=== PATIENT | female | born 1965 | race Caucasian/White ===

== ENCOUNTER → 2016-08-31 | Outpatient (CLI) | payer OTHER ==
[~2016-08-31] MED LIST: LEVO250T7 PO
[2016-08-31 09:56] LABS: BASO % 0 % (0-3); EOS % 4 % (0-3); HEMATOCRIT 39.6 % (36.0-47.0); HEMOGLOBIN 13.6 g/dL (12.0-15.5); LYMPH % 37 % (24-48); MEAN CORPUSCULAR HEMOGLOBIN 30 pg (25-35); MEAN CORPUSCULAR HGB CONC 34 g/dL (31-37); MEAN CORPUSCULAR VOLUME 87 fL (79-100); MONO % 7 % (0-9); NEUT % 52 % (31-73); PLATELET COUNT 318 x10^3/uL (140-400); RED BLOOD COUNT 4.56 x10^6/uL (3.50-5.40); RED CELL DISTRIBUTION WIDTH 13.1 % (11.5-14.5); WHITE BLOOD COUNT 5.4 x10^3/uL (4.0-11.0)
[2016-08-31 10:20] LABS: CHOLESTEROL/HDL RATIO 2.7
[2016-08-31 10:28] LABS: FREE T4 1.18 ng/dL (0.76-1.46)
== END | disposition home or self-care (01) ==
LOC: LAB 09:35
PROVIDERS: ATTEND Internal Medicine
DX: Z01.419 Encounter for gynecological examination (general) (routine) without abnormal findings (principal); E03.9 Hypothyroidism, unspecified
CPT/HCPCS: 36415; 80061; 84439; 84443; 85027; 86803

== ENCOUNTER → 2017-11-03 | Outpatient (CLI) | payer OTHER ==
[2017-11-03 09:05] LABS: ADD MAN DIFF? NO
[2017-11-03 09:14] LABS: BASO % 0 % (0-3); EOS # 0.2 x10^3/uL (0.0-0.7); EOS % 4 % (0-3); HEMATOCRIT 38.4 % (36.0-47.0); LYMPH # 1.9 x10^3/uL (1.0-4.8); LYMPH % 34 % (24-48); MEAN CORPUSCULAR HEMOGLOBIN 30 pg (25-35); MEAN CORPUSCULAR HGB CONC 34 g/dL (31-37); MEAN CORPUSCULAR VOLUME 89 fL (79-100); MONO # 0.4 x10^3/uL (0.0-1.1); MONO % 8 % (0-9); NEUT # 3.1 x10^3uL (1.8-7.7); NEUT % 55 % (31-73); PLATELET COUNT 292 x10^3/uL (140-400); RED CELL DISTRIBUTION WIDTH 13.5 % (11.5-14.5); WHITE BLOOD COUNT 5.7 x10^3/uL (4.0-11.0)
[2017-11-03 09:24] LABS: ALBUMIN 3.5 g/dL (3.4-5.0); ALBUMIN/GLOBULIN RATIO 0.8 (1.0-1.7); ALK PHOS 71 U/L (46-116); ALT (SGPT) 58 U/L (14-59); ANION GAP 5 (6-14); AST (SGOT) 37 U/L (15-37); BLOOD UREA NITROGEN 16 mg/dL (7-20); BUN/CREATININE RATIO 20 (6-20); CALCIUM 9.2 mg/dL (8.5-10.1); CARBON DIOXIDE 29 mmol/L (21-32); CHLORIDE 106 mmol/L (98-107); CHOLESTEROL 223 mg/dL (0-200); CREATININE 0.8 mg/dL (0.6-1.0); GFR 75.3; GLUCOSE 97 mg/dL (70-99); HDLC 73 mg/dL (40-60); LDLC 141 mg/dL (0-100); NON-HDL CHOLESTEROL 150 mg/dL (0-129); POTASSIUM 4.2 mmol/L (3.5-5.1); SODIUM 140 mmol/L (136-145); TOTAL BILIRUBIN 0.2 mg/dL (0.2-1.0); TOTAL PROTEIN 7.8 g/dL (6.4-8.2); TRIGLYCERIDES 46 mg/dL (0-150); VLDLC 9 mg/dL (0-40)
[2017-11-03 09:28] LABS: CHOLESTEROL/HDL RATIO 3.1
[2017-11-03 09:36] LABS: THYROID STIM HORMONE (TSH) 2.048 uIU/mL (0.358-3.74)
== END | disposition home or self-care (01) ==
LOC: LAB 08:53
DX: Z00.00 Encounter for general adult medical examination without abnormal findings (principal); E03.9 Hypothyroidism, unspecified
CPT/HCPCS: 36415; 80053; 80061; 84443; 85025

== ENCOUNTER 2018-08-06 23:41 | Emergency (ER) | payer OTHER ==
[~2018-08-06] VITALS: Ht 170.2 cm; Wt 95.3 kg
[2018-08-06 23:58] VITALS: BP 149/86
[2018-08-07] MEDS ORDERED: ONDA4TAB12 PO (00:29)
[2018-08-07] MEDS ORDERED: CYCL10TA2 PO (00:29)
[2018-08-07] MEDS ORDERED: HYDR-3164 PO (00:29)
[2018-08-07] MEDS ORDERED: DEXAMETHASONE 4 MG TABLET PO ONE (00:30)
[2018-08-07] MEDS ORDERED: HYDROcodone/APAP 5/325MG 1 TAB TABLET PO ONE (00:30)
--- NOTE | 2018-08-07 00:30 | PHYS DOC ---
Past Medical History Additional Information: non smoker Adult General Chief Complaint Chief Complaint: HIP PAIN HPI HPI Patient is a 53-year-old female who presents with right hip pain that radiates down her right leg for one day. The patient states she has been putting together deck furniture on her deck. Has never had this symptom before. Associated symptoms include pain shooting down her leg. It is 10 out of 10 in severity. She took ibuprofen p.m. at 945 and then woke up during her sleep with the pain. Review of Systems Review of Systems Constitutional: Denies fever or chills [] Eyes: Denies change in visual acuity, redness, or eye pain [] HENT: Denies nasal congestion or sore throat [] Respiratory: Denies cough or shortness of breath [] Cardiovascular: No additional information not addressed in HPI [] GI: Denies abdominal pain, nausea, vomiting, bloody stools or diarrhea [] : Denies dysuria or hematuria [] Musculoskeletal: Reports lumbar back pain and hip pain on the right side. Integument: Denies rash or skin lesions [] Neurologic: Denies headache, focal weakness or sensory changes [] Endocrine: Denies polyuria or polydipsia [] Complete systems were reviewed and found to be within normal limits, except as documented in this note. Current Medications Current Medications Current Medications Medications (Trade) Dose Ordered Sig/Porter Start Time Stop Time Status Last Admin Dose Admin Acetaminophen/ Hydrocodone Bitart (Lortab 5/325) 1 tab 1X ONCE 08/07/18 00:30 08/07/18 00:31 DC 08/07/18 00:24 1 TAB Dexamethasone (Decadron) 10 mg 1X ONCE 08/07/18 00:30 08/07/18 00:31 DC 08/07/18 00:23 10 MG Allergies Allergies Allergies Coded Allergies Type Severity Reaction Last Updated Verified Penicillins Allergy Intermediate Hives 09/20/13 Yes Physical Exam Physical Exam Constitutional: Well developed, well nourished, no acute distress, non-toxic appearance. [] HENT: Normocephalic, atraumatic, bilateral external ears normal, oropharynx mois t, no oral exudates, nose normal. [] Eyes: PERRLA, EOMI, conjunctiva normal, no discharge. [] Neck: Normal range of motion, no tenderness, supple, no stridor. [] Cardiovascular:Heart rate regular rhythm, no murmur [] Lungs & Thorax: Bilateral breath sounds clear to auscultation [] Abdomen: Bowel sounds normal, soft, no tenderness, no masses, no pulsatile masses. [] Skin: Warm, dry, no erythema, no rash. [] Back: Tenderness to lumbar back and R hip. Extremities: No tenderness, no cyanosis, no clubbing, ROM intact, no edema. [] Neurologic: Alert and oriented X 3, normal motor function, normal sensory function, no focal deficits noted. [] Psychologic: Affect normal, judgement normal, mood normal. [] Current Patient Data Vital Signs Vital Signs Date Time Temp Pulse Resp B/P (MAP) Pulse Ox O2 Delivery O2 Flow Rate FiO2 08/07/18 00:24 18 99 Room Air 08/06/18 23:58 98.7 80 149/86 (107) 98.7 EKG EKG [] Radiology/Procedures Radiology/Procedures Radiology interpreted by Dr. Casey Hip and Lumbar Spine X-rays: No acute fractures or dislocations. Signs of arthritis is apparent.[] Course & Med Decision Making Course & Med Decision Making Pertinent Labs and Imaging studies reviewed. (See chart for details) Discussed signs and symptoms with patient. Will evaluate with x-ray and then order a steroid and pain medication. Patient is agreeable to the plan of care. Imaging is negative. Explained to patient it is most likely sciatica. Will discharge home to follow up with PCP. Educated on sciatica. Will send home with pain medication, muscle relaxer, and nausea medication. Patient is agreeable to plan of care. Dragon Disclaimer Dragon Disclaimer This electronic medical record was generated, in whole or in part, using a voice recognition dictation system. Departure Departure Impression: Primary Impression: Lower back pain Disposition: HOME, SELF-CARE Condition: STABLE Referrals: LAMAR JIMENEZ MD (PCP) Patient Instructions: Sciatica, [id number] Additional Instructions: Pain usually disappears within 2-4 weeks. Stay active and continues activities of daily living as tolerated. You can use heat for pain relief. If pain gets excruciating you can take [place]. If moderate pain take Ibuprofen per label ins tructions. You can also try Flexeril and see if that helps. Be aware that both [place] and Flexeril will make you drowsy. Please do not drive on these medications. If pain continues please follow up with your primary care doctor. Scripts Cyclobenzaprine Hcl (CYCLOBENZAPRINE HCL) 10 Mg Tablet 1 TAB PO TID for 7 Days, #21 TAB Prov: UMM ANTHONY APRN 08/07/18 Ondansetron (ONDANSETRON ODT) 4 Mg Tab.rapdis 1 TAB PO PRN Q6-8HRS PRN for NAUSEA, #16 TAB Prov: UMM ANTHONY APRN 08/07/18 Hydrocodone/Apap 5-325 (NORCO 5-325 TABLET) 1 Each Tablet 1 TAB PO PRN Q6HRS PRN for PAIN, #10 TAB 0 Refills Prov: UMM ANTHONY APRN 08/07/18 Problem Qualifiers Primary Impression: Lower back pain Chronicity: acute Back pain laterality: right Sciatica presence: with sciatica Sciatica laterality: sciatica of right side Qualified Codes: M54.41 - Lumbago with sciatica, right side UMM ANTHONY APRN August 07, 2018 00:30
--- NOTE | 2018-08-07 01:42 | RAD ---
Examination: 2 views of the right hip HISTORY: History of right hip pain COMPARISON: None available FINDINGS: The right femoral head is within the acetabulum. There is no acute fracture or dislocation identified. Mild degenerative changes right hip joint. IMPRESSION: 1. No acute osseous findings. 2. Mild degenerative changes right hip joint. Electronically signed by: Jason Dozier MD (08/07/2018 1:39 AM) [facility]
--- NOTE | 2018-08-07 06:32 | RAD ---
Examination: 4 views of the lumbar spine History low back pain COMPARISON: None available FINDINGS: The lumbar vertebral body heights are maintained. No evidence of listhesis. Mild degenerative changes lumbar spine. IMPRESSION: No acute osseous findings Electronically signed by: Jason Dozier MD (08/07/2018 6:29 AM) [facility]
== END 2018-08-07 01:14 | disposition home or self-care (01) ==
LOC: ER 23:41
DX: M54.41 Lumbago with sciatica, right side (principal); M25.551 Pain in right hip; Z88.0 Allergy status to penicillin
CPT/HCPCS: 72110; 73502; 99284; J8540

== ENCOUNTER → 2018-09-11 | Outpatient (CLI) | payer OTHER ==
[~2018-09-11] MED LIST changes: +CYCL10TA2 PO; +HYDR-3164 PO; +ONDA4TAB12 PO
[2018-09-11 10:54] LABS: BASO % 1 % (0-3); EOS # 0.2 x10^3/uL (0.0-0.7); EOS % 3 % (0-3); HEMATOCRIT 39.7 % (36.0-47.0); HEMOGLOBIN 13.2 g/dL (12.0-15.5); LYMPH # 1.9 x10^3/uL (1.0-4.8); LYMPH % 38 % (24-48); MEAN CORPUSCULAR HEMOGLOBIN 29 pg (25-35); MEAN CORPUSCULAR HGB CONC 33 g/dL (31-37); MEAN CORPUSCULAR VOLUME 88 fL (79-100); MONO # 0.4 x10^3/uL (0.0-1.1); MONO % 8 % (0-9); NEUT # 2.6 x10^3uL (1.8-7.7); NEUT % 51 % (31-73); PLATELET COUNT 334 x10^3/uL (140-400); RED BLOOD COUNT 4.51 x10^6/uL (3.50-5.40); RED CELL DISTRIBUTION WIDTH 13.7 % (11.5-14.5); WHITE BLOOD COUNT 5.1 x10^3/uL (4.0-11.0)
[2018-09-11 11:26] LABS: ALBUMIN 3.7 g/dL (3.4-5.0); ALBUMIN/GLOBULIN RATIO 0.9 (1.0-1.7); CALCIUM 9.7 mg/dL (8.5-10.1); CREATININE 0.7 mg/dL (0.6-1.0); GFR 87.5; POTASSIUM 4.3 mmol/L (3.5-5.1); TOTAL BILIRUBIN 0.3 mg/dL (0.2-1.0); TOTAL PROTEIN 7.7 g/dL (6.4-8.2)
[2018-09-11 11:29] LABS: CHOLESTEROL/HDL RATIO 2.7
[2018-09-12 13:19] LABS: HEMOGLOBIN A1C 5.5 % (4.8-5.6)
== END | disposition home or self-care (01) ==
LOC: LAB 10:34
PROVIDERS: ATTEND Nurse Practitioner Family
DX: Z00.00 Encounter for general adult medical examination without abnormal findings (principal)
CPT/HCPCS: 36415; 80053; 80061; 82306; 83036; 84443; 85025

== ENCOUNTER → 2018-10-12 | Day surgery (SDC) | payer OTHER ==
[~2018-10-12] MED LIST changes: +IV RINGERS,LACTATED 1000ML 1,000 ML IV SCH; +LIDOCAINE 1% PF 2 ML VIAL. ID PRN; +LIDOCAINE 2% PF 5 ML VIAL. ONE; +MIDAZOLAM HCL/PF 2 MG/2 ML VIAL. IV PRN; +PROPOFOL 40 ML IV ONE; +fentaNYL PF VIAL 100 MCG/2 ML VIAL IV PRN
--- NOTE | 2018-10-12 09:28 | CONS ---
DATE OF CONSULTATION: 10/12/2018 GASTROINTESTINAL CONSULTATION REFERRING PHYSICIAN: Dr. Lamar Sanders. REASON FOR CONSULTATION: Colorectal screening. HISTORY OF PRESENT ILLNESS: A 53-year-old female whose past medical history is significant for tonsillectomy, hypothyroidism and previous cyst operation in buttocks, is seen for screening colon exam. Bowel habits are regular without diarrhea or constipation. There has been no melena and/or hematochezia. Weight and appetite are stable. No family history of colon polyps, colon cancer or inflammatory bowel disease is elicited. She is otherwise without additional complaints. PAST MEDICAL HISTORY: Significant for the hypothyroidism, status post tonsillectomy, cyst surgery. ALLERGIES: PENICILLIN. MEDICATIONS: Include levothyroxine daily. FAMILY AND SOCIAL HISTORY: She has a history of hypertension with her mother. Nonsmoker, social drinker. Family history is otherwise noncontributory. REVIEW OF SYSTEMS: HEENT: There is no decrease in visual acuity issues. CARDIAC: No history of hypertension, palpitations, or syncope. PULMONARY: No shortness breath, productive cough or asthma. RENAL: No dysuria, frequency or hematuria. MUSCULOSKELETAL: No osteoarthrosis, arthralgias, myalgias. NEUROLOGIC: No stroke or migraine. PSYCHIATRIC: Occasional anxiety. HEMATOLOGIC: No bleeding, bruising, coagulopathy. ENDOCRINE: History of hypothyroidism. GASTROINTESTINAL: See history of present illness. PHYSICAL EXAMINATION: GENERAL: Reveals a well-nourished, well-developed female, who is alert, cooperative, in no acute distress. VITAL SIGNS: Temperature 98.5, pulse 96, respiration rate 18. HEENT: Normocephalic, atraumatic head. Pupils and extraocular muscles are not tested. Sclerae anicteric. NECK: Supple. LUNGS: Clear. CARDIOVASCULAR: Reveals S1, S2 without S3, S4 or appreciable murmur. ABDOMEN: Soft abdomen, normal bowel sounds, without appreciable hepatosplenomegaly. EXTREMITIES: Reveals no cyanosis, clubbing, edema. IMPRESSION: Colorectal screening is warranted at this time. Risks and benefits of procedure including risk of hemorrhage and perforation during the operation have been discussed. The patient is willing to proceed. I would like to thank Dr. Sanders for allowing us to consult and participate in the patient's care. MANDY SPEAR MD DR: LUCIA/ofelia JOB#: [id number] / [id number] LAMAR Echols MD
[2018-10-12 09:57] VITALS: BP 119/65
== END ==
LOC: ENDOS 08:05
PROVIDERS: ATTEND Internal Medicine Gastroenterology
DX: Z12.11 Encounter for screening for malignant neoplasm of colon (principal); K57.30 Diverticulosis of large intestine without perforation or abscess without bleeding; K64.0 First degree hemorrhoids; E03.9 Hypothyroidism, unspecified; Z88.0 Allergy status to penicillin
CPT/HCPCS: 45378; J2001; J2704

== ENCOUNTER → 2020-01-03 | Outpatient (CLI) | payer OTHER ==
[2018-10-12 09:57] VITALS: BP 119/65
[~2020-01-03] MED LIST changes: -IV RINGERS,LACTATED 1000ML 1,000 ML IV SCH; -LIDOCAINE 1% PF 2 ML VIAL. ID PRN; -LIDOCAINE 2% PF 5 ML VIAL. ONE; -MIDAZOLAM HCL/PF 2 MG/2 ML VIAL. IV PRN; -PROPOFOL 40 ML IV ONE; -fentaNYL PF VIAL 100 MCG/2 ML VIAL IV PRN
[2020-01-03 09:43] LABS: BASO % 1 % (0-3); EOS # 0.1 x10^3/uL (0.0-0.7); EOS % 2 % (0-3); HEMATOCRIT 40.3 % (36.0-47.0); HEMOGLOBIN 13.8 g/dL (12.0-15.5); LYMPH # 1.8 x10^3/uL (1.0-4.8); LYMPH % 35 % (24-48); MEAN CORPUSCULAR HEMOGLOBIN 30 pg (25-35); MEAN CORPUSCULAR HGB CONC 34 g/dL (31-37); MEAN CORPUSCULAR VOLUME 86 fL (79-100); MONO # 0.4 x10^3/uL (0.0-1.1); MONO % 8 % (0-9); NEUT # 2.9 x10^3/uL (1.8-7.7); NEUT % 55 % (31-73); PLATELET COUNT 337 x10^3/uL (140-400); RED BLOOD COUNT 4.67 x10^6/uL (3.50-5.40); RED CELL DISTRIBUTION WIDTH 13.6 % (11.5-14.5); WHITE BLOOD COUNT 5.2 x10^3/uL (4.0-11.0)
[2020-01-03 10:00] LABS: ALBUMIN 3.6 g/dL (3.4-5.0); ALBUMIN/GLOBULIN RATIO 0.8 (1.0-1.7); CALCIUM 9.4 mg/dL (8.5-10.1); CREATININE 0.9 mg/dL (0.6-1.0); GFR 65.2; POTASSIUM 4.6 mmol/L (3.5-5.1); TOTAL BILIRUBIN 0.3 mg/dL (0.2-1.0); TOTAL PROTEIN 8.2 g/dL (6.4-8.2)
[2020-01-03 10:12] LABS: CHOLESTEROL/HDL RATIO 3.1
== END | disposition home or self-care (01) ==
LOC: LAB 09:14
PROVIDERS: ATTEND Family Medicine
DX: E03.9 Hypothyroidism, unspecified (principal)
CPT/HCPCS: 36415; 80053; 80061; 82306; 84443; 85025

== ENCOUNTER → 2021-02-18 | Outpatient (CLI) | payer OTHER ==
[2018-10-12 09:57] VITALS: BP 119/65
[~2021-02-18] MED LIST changes: +CYCL10TA19 PO; -CYCL10TA2 PO; -LEVO250T7 PO; +LEVO250T8 PO
[2021-02-18 10:24] LABS: BASO % 0 % (0-3); EOS # 0.1 x10^3/uL (0.0-0.7); EOS % 2 % (0-3); HEMATOCRIT 40.6 % (36.0-47.0); HEMOGLOBIN 13.2 g/dL (12.0-15.5); LYMPH # 2.2 x10^3/uL (1.0-4.8); LYMPH % 32 % (24-48); MEAN CORPUSCULAR HEMOGLOBIN 28 pg (25-35); MEAN CORPUSCULAR HGB CONC 33 g/dL (31-37); MEAN CORPUSCULAR VOLUME 87 fL (79-100); MONO # 0.4 x10^3/uL (0.0-1.1); MONO % 6 % (0-9); NEUT # 4.2 x10^3/uL (1.8-7.7); NEUT % 60 % (31-73); PLATELET COUNT 349 x10^3/uL (140-400); RED BLOOD COUNT 4.69 x10^6/uL (3.50-5.40); RED CELL DISTRIBUTION WIDTH 13.5 % (11.5-14.5)
[2021-02-18 10:38] LABS: ALBUMIN 3.5 g/dL (3.4-5.0); ALBUMIN/GLOBULIN RATIO 0.8 (1.0-1.7); CALCIUM 9.1 mg/dL (8.5-10.1); CREATININE 0.7 mg/dL (0.6-1.0); GFR 86.9; POTASSIUM 4.7 mmol/L (3.5-5.1); TOTAL BILIRUBIN 0.4 mg/dL (0.2-1.0); TOTAL PROTEIN 7.9 g/dL (6.4-8.2)
[2021-02-18 10:39] LABS: CHOLESTEROL/HDL RATIO 3.2
== END ==
LOC: LAB 09:55
PROVIDERS: ATTEND Family Medicine
DX: Z00.00 Encounter for general adult medical examination without abnormal findings (principal); E03.9 Hypothyroidism, unspecified; E78.5 Hyperlipidemia, unspecified; E55.9 Vitamin D deficiency, unspecified
CPT/HCPCS: 36415; 80053; 80061; 82306; 84443; 85025